=== PATIENT | male | born 1970 | race Caucasian/White ===

== ENCOUNTER → 2024-08-15 12:02 | Outpatient (BNVA) | payer SELFPAY | PROVIDERS: PCP Registered Nurse; Visit Provider Internal Medicine | DX: E11.9 Type 2 diabetes mellitus without complications (principal) | CPT/HCPCS: 36415; 80053 ==

== ENCOUNTER 2024-08-16 10:37 | Emergency (ER) | payer SELFPAY ==
--- OUTSIDE RECORDS SUMMARY | 2024-08-16 10:46 | XMS_ITS | Encounter Summary ---
Author Organization [id number] Address [address] [place] [address] Care Team Providers Care Paste Worker Name Role Phone Non-Staff, Physician Primary Care Provider Unava ilable Encounter Details Date Type Department Care Team (Late st Contact Info) Description 06/19/2016 Ancillary Orders Revolymer Prince [address] [place] [phone] Natasha Alegria, TAMEKA Javier [address] [place] [address] Left shoulder pain, unspecified chronicity Social History Tobacco Use Types Packs/Day Years Used Date Smoking Tobacco: Passive Smo ke Exposure - Never Smoker Cigarettes 1 25 Alcohol Use Standard Drinks/Week Comments Yes 0 (1 standard drink = 0.6 oz pur e alcohol) Sex and Gender Information Value Date Recorded Sex Assigned at Not on file 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 Exam: XR SHOULDER 2+ VW LEFT Date/Time of Exam: 06/19/2016 11:00 AM Reason For Exam: Left shoulder pain, unspecified chronicity. Findings: Bones and joint spaces are intact. No soft tissue pathology evident. IMPRESSION: Negative. [id number] Narrative Procedure Note Raheem Lawson MD - 06/19/2016 IMPRESSION IMPRESSION: Please see below. Exam: XR SHOULDER 2+ VW LEFT Date/Time of Exam: 06/19/2016 11:00 AM Reason For Exam: Left shoulder pain, unspecified chronicity. Findings: Bones and joint spaces are intact. No soft tissue pathology evident. IMPRESSION: Negative. [id number] Chepe Kaur Sr., [facility] G ORDERABLES Final Result documented in this encounter Visit Diagnoses Diagnosis Left shoulder pain, unspecified chronicity Left shoulder pain, unspecified chronicity documented in this encounter Care Teams Paste Worker Relationship Specialty Start Date End Date Non-Staff, Physician NO ADDRESS ON FILE PCP - General 06/19/16 documented as of this encounter
--- OUTSIDE RECORDS SUMMARY | 2024-08-16 10:46 | XMS_ITS | Clinical Summary ---
Author Organization [facility] Address [address] Attn: [place] [address] Care Team Providers Care Chemical Equipment Controller Name Role Phone Gold Holcomb MD Primary Care Provider [phone] Allergies No known active allergies Medications Symbicort 160-4.5 mcg/actuation HFA Aerosol InhalerIndication s:Mild intermittent asthma without complication inhale two puffs by mouth twice daily 10.2 Gram 11 5 Active traZODone (DESYREL) 150 mg tabletIndications :Insomnia, unspecified type Take 2 Tablets (300 mg) by mouth daily at bedtime. 60 Tablet 2 5 Active traZODone (DESYREL) 150 mg tabletIndications :Insomnia, unspecified type Take 2 Tablets (300 mg) by mouth daily at bedtime. 60 Tablet 2 5 08/07/19 25 Discontinu ed(Reorder ) Active Problems Problem Noted Date Diagnosed Date Insomnia 04/14/2022 Encounters Date Type Department Care Team Description 08/06/[address] [phone] Rosalia Ulloa FNP Insomnia, unspecified type 07/26/2024 External Device Data ST[facility] ABSTRACTION Provider, Abstract 07/26/2024 External Device Data [facility] ABSTRACTION Provider, Abstract 07/12/[address] [phone] Rosalia Ulloa, RADIOPHONE OPERATOR Insomnia, unspecified type 07/06/2024 External Device Data [facility] ABSTRACTION Provider, Abstract 07/05/2024 External Device Data ST[facility] ABSTRACTION Provider, Abstract 06/21/2024 External Device Data ST[facility] ABSTRACTION Provider, Abstract 06/14/2024 External Device Data STL ABSTRACTION Provider, Abstract 06/07/2024 5:00 PM CDT Office Visit [address] [phone] Rosalia Ulloa Herlinda, RADIOPHONE OPERATOR Insomnia, unspecified type (Primary Dx); Refused influenza vaccine; Mild intermittent asthma without complication from Last 3 Months Immunizations Immunization Administration Dates Next Due Hepatitis A Vaccine 11/07/2004 Influenza Seasonal Unspecified Formulation IM Social History Tobacco Use Types Packs/Day Years Used Date Smoking Tobacco: Never Cigarettes Passive Smoke Exposure: Yes Tobacco Cessation:Counseling Given: No Alcohol Use Standard Drinks/Week Comments Yes 0 (1 standard drink = 0.6 oz pur e alcohol) Sex and Gender Information Value Date Recorded Sex Assigned at Not on file 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 Gender Identity Not on file Sexual Orientation Straight 07/07/2024 11 :59 AM CDT Last Filed Vital Signs Vital Sign Reading Time Taken Comments Blood Pressure 138/80 06/07/2024 4:36 PM CDT Pulse 89 06/07/2024 4:36 PM CDT Temperature 36.2 C (97.2 F) 06/07/2024 4:36 PM CDT Respiratory Rate 18 06/07/2024 4:36 PM CDT Oxygen Saturation 99% 06/07/2024 4:36 PM CDT Inhaled Oxygen Concentration - - Weight 90.5 kg (199 lb 8 oz) 06/07/2024 4:36 PM CDT Height 179.1 cm (5' 10.5 ) 06/07/2024 4:36 PM CD T Body Mass Index 28.22 06/07/2024 4:36 PM CDT Plan of Treatment Upcoming Encounters Date Type Department Care Team (Late st Contact Info) Description 08/16/2024 1:00 PM CDT Office Visit [address] [phone] Coreen Wiley, TEAM PHYSICIAN [address] [place] [phone] 06/09/2025 3:00 PM CDT Office Visit [facility] [address] [place] [phone] Rosalia Ulloa, [facility] [address] [place] [address] Health Maintenance Due Date Last Done Comments Pre-Diabetes and Diabetes Screening 1970 DTAP/TDAP/TD VACCINES (1 - Tdap) 08/06/1990 HEPATITIS B VACCINES (1 of 3 - 19+ 3-dose series) 08/06/1990 COLORECTAL SCREENING 08/06/2016 Colorectal Cancer Screening 08/06/2016 FIT-DNA Q 3 years 08/06/2016 FIT/FOBT Q 1 year 08/06/2016 Flex Sig/CT Colonography Q 5 years 08/06/2016 ZOSTER VACCINE (1 of 2) 08/06/2021 INFLUENZA VACCINE (#1) 2024 , 06/07/2024, 04/14/2022, Additional history exists Care Teams Chemical Equipment Controller Relationship Specialty Start Date End Date Gold Holcomb MD [address] [phone] PCP - General Family Practice 04/21/23
--- OUTSIDE RECORDS SUMMARY | 2024-08-16 10:46 | XMS_ITS | Clinical Summary ---
Author Organization [facility] Address [facility][note 3] [facility] [place] [address] Care Team Providers Care Retail Analytics Manager Name Role Phone Non-Staff, Physician Primary Care Provider Unava ilable Allergies No known active allergies Medications albuterol (PROVENTIL,VENT SETH) 0.63 mg/3 mL Inhalation Nebu Take 0.63 mg by inhalation one time only. Active doxycycline hyclate (VIBRAMYCIN) 100 mg Oral tablet Take 1 Tab by mouth 2 times daily. 2 Tab None 2 Active doxycycline hyclate (VIBRAMYCIN) 100 mg Oral tablet Take 1 Tab by mouth 2 times daily. 20 Tab None 2 Active albuterol (PROVENTIL,VENT SETH) 90 mcg/actuation Inhalation Aero Take 2 Puffs by inhalation 4 times daily. 17 Gram 0 2 Active predniSONE (DELTASONE) 20 mg Oral tablet Take 2 Tabs by mouth 2 times daily with meals. 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 Gender Identity Not on file Sexual Orientation Not on file Occupation Industry Job Start Date Job End Date Not on file Not on file Not on file Not on file Last Filed Vital Signs Vital Sign Reading Time Taken Comments Blood Pressure 124/85 01/19/2012 6:17 PM ESTATE ATTORNEY Pulse 102 01/19/2012 8:08 PM ESTATE ATTORNEY Temperature 36.8 C (98.2 F) 01/19/2012 6:17 PM ESTATE ATTORNEY Respiratory Rate 24 01/19/2012 8:08 PM ESTATE ATTORNEY Oxygen Saturation 95% 01/19/2012 8:08 PM ESTATE ATTORNEY Inhaled Oxygen Concentration - - Weight 90.7 kg (200 lb) 01/19/2012 6:17 PM ESTATE ATTORNEY Height 180.3 cm (5' 11 ) 01/19/2012 6:17 PM ESTATE ATTORNEY Body Mass Index 27.89 01/19/2012 6:17 PM ESTATE ATTORNEY Plan of Treatment Health Maintenance Due Date Last Done Comments DTAP/TDAP/TD VACCINES (1 - Tdap) 08/06/1990 HEPATITIS B VACCINES (1 of 3 - 19+ 3-dose series) 07/18 COLORECTAL SCREENING 08/06/2016 Colorectal Cancer Screening 08/06/2016 FIT-DNA Q 3 years 08/06/2016 FIT/FOBT Q 1 year 08/06/2016 Flex Sig/CT Colonography Q 5 years 08/06/2016 ZOSTER VACCINE (1 of 2) 08/06/2021 INFLUENZA VACCINE (#1) 2023 Care Teams Retail Analytics Manager Relationship Specialty Start Date End Date Non-Staff, Physician NO ADDRESS ON FILE PCP - General 06/19/16
--- OUTSIDE RECORDS SUMMARY | 2024-08-16 10:46 | XMS_ITS | Encounter Summary ---
Author Organization [facility] Address [address] [place] [address] Care Team Providers Care Audit Consultant Name Role Phone Non-Staff, Physician Primary Care Provider Unava ilable Encounter Details Date Type Department Care Team (Latest Contact Info) Description 02/11/2002 Outpatient Historical [facility] Medicine [address], [place] [phone] Nahun Mullins MD [address] [place] [phone] POSTABLAT TESTIC HYPOFUN (Primary Dx); NEUROTIC DEPRESSION Social History Tobacco Use Types Packs/Day Years Used Date Smoking Tobacco: Never Assessed Sex and Gender Information Value Date Recorded Sex Assigned at Not on file Legal Sex Male 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
[2024-08-16 10:50] VITALS: BP 115/80; PULSE 70; RESP 16; TEMP 36.4; O2SAT 97
--- NOTE | 2024-08-16 11:19 | ED_ITS ---
HPI - General Adult 2 General: Chief complaint: General Medical Stated complaint: endo sent, abnormal labs Time Seen by Provider: 08/16/24 11:13 Source: patient Mode of arrival: ambulatory Limitations: no limitations History of Present Illness: 54-year-old male has a history of chroni c alcoholism. States he drinks 1/5 a day he recently got out of detox states he did drink yesterday he was sent here by endocrinology for elevated liver enzymes. He denies any abdominal pain currently has had no vomiting or diarrhea. Associated symptoms: Deny chest pain, dyspnea, headache(s), nausea, rash or vomiting Related Data Home Medications ?Medication ?Instructions ?Recorded ?Confirmed chlordiazepoxide HCl 25 mg capsule 25 mg PO Q4-5H PRN Alcohol 08/15/24 08/15/24 Withdrawal Previous Rx's ?Medication ?Instructions ?Recorded hydroxyzine HCl 50 mg tablet 50 mg PO .at bedtime 30 d ays #30 04/09/22 tabs budesonide-formoterol HFA 160 See Rx Instructions .Rou te 01/26/23 mcg-4.5 mcg/actuation aerosol .COMPLEX #10.2 grams inhaler (Symbicort) insulin glargine 100 unit/mL (3 10 unit (0.1 mL) SUBCU T QAM #3 mL 08/16/24 mL) subcutaneous pen (Lantus Solostar U-100 Insulin) ondansetron 4 mg disintegrating 4 mg PO Q6H PRN nausea and 08/16/24 tablet vomiting #14 tabs Allergies Allergy/AdvReac Type Severity Reaction Status Date / Time No Known Allergies Allergy Verified 04/09/22 09:23 Review of Systems 2 Const: Denies: fever(s), chills, body aches or change in appetite ENMT: Denies: throat pain or dental pain Card: Denies: chest pain Resp: Denies: dyspnea GI: Denies: abdominal pain, nausea, vomiting or diarrhea Musc: Denies: neck pain or back pain Skin/Breast: Denies: rash Neuro: Denies: headache(s) PFSH ED 2 PFSH: Medical History DM type 2 (diabetes mellitus, type 2) Alcohol ingestion of more than two drinks per day Asthma Social History Smoking and tobacco/nicotine status: former use of tobacco/nicotine Alcohol intake: current Substance/Drug Use: never Adopted: No Caregiver/support person: No service: No Current occupational status: employed Sexually active: Yes Do you think of yourself as: Straight/Heterosexual Current gender identity: Male Physical Exam 2 Const: COMMON NORMALS: no acute distress, patient oriented x3 and healthy appearing HENMT: COMMON NORMALS: normocephalic and atraumatic HEAD & SCALP: n ormocephalic and atraumatic Eye: COMMON NORMALS: conjunctivae normal CONJUNCTIVA: Yes conjunctivae normal Neck/C-Spine: COMMON NORMALS: full ROM and supple Chest: COMMONS NORMALS: normal inspection of the chest Resp: COMMON NORMALS: normal respiratory effort, No retractions, No use of accessory muscles and clear to auscultation bilaterally AUSCULTATION: clear to auscultation bilaterally Cardio: COMMON NORMALS: regular rate, regular rhythm and No murmurs present (Cardio) RATE: regular rate RHYTHM: regular rhythm GI: COMMON NORMALS: Normal to inspection, nondistended, normoactive bowel sounds present, Soft to palpation, non-tender and no masses PALPATION: Yes Soft to palpation Extremity: COMMON NORMALS: normal to inspection and full ROM Neuro: COMMON NORMALS: patient oriented x3, moves all extremities and no focal motor deficits Psych: COMMON NORMALS: mental status grossly normal, Normal thought process present and cooperative THOUGHT PROCESS: Normal thought process present Skin: COMMON NORMALS: no rashes or lesions noted and no wounds GENERAL SKIN EXAM: no rashes or lesions noted Course 2 Vital Signs: Vital signs: Vital Signs Temperature 97.5 F L 08/16/24 10:50 Pulse Rate 66 08/16/24 11:34 Respiratory Rate 18 08/16/24 11:34 Blood Pressure 122/74 08/16/24 11:34 Pulse Oximetry 96 08/16/24 11:34 Oxygen Delivery Me thod Room Air 08/16/24 10:50 [facility] - General Adult Medical Decision Making Patient presents here with elevated liver enzymes likely due to his alcohol abuse his liver enzymes have improved from previous no signs of liver failure. Offered admission for detox he states that he has been going through detox treatments and does not want to be admitted did give him a dose of thiamine will prescribe Zofran he stable for discharge follow-up PCP return if worsening. Medical Records I reviewed the patient's medical records. Lab Data I reviewed the patient's lab results. 08/16/24 11:28 08/16/24 11:28 Laboratory Results WBC 5.04 10^3/uL (3.29-11.43) 08/16/24 11:28 RBC 4.62 10^6/uL (3.85-5.65) 08/16/24 11:28 Hgb 14.40 g/dL (11.27-16.99) 08/16/24 11:28 Hct 41.3 % (37-53) 08/16/24 11:28 MCV 89.4 fl (82-101) 08/16/24 11:28 MCH 31.2 pg (27-33) 08/16/24 11:28 MCHC 34.9 g/dL (30-55) 08/16/24 11:28 RDW 12.3 % (12.1-15.1) 08/16/24 11:28 Plt Count 133 10^3/cmm (157-399) L 08/16/24 11:28 MPV 10.3 fL (7.4-10.4) 08/16/24 11:28 Neut % (Auto) 63.0 % 08/16/24 11:28 Lymph % (Auto) 17.9 % 08/16/24 11:28 [place] % (Auto) 13.1 % 08/16/24 11:28 Eos % (Auto) 5.2 % 08/16/24 11:28 Baso % (Auto) 0.6 % 08/16/24 11:28 Neut # (Auto) 3.18 10^3/uL (1.8-7.7) 08/16/24 11:28 Lymph # (Auto) 0.9 10^3/uL (0.8-4.8) 08/16/24 11:28 [place] # (Auto) 0.7 10^3/uL (0.2-0.9) 08/16/24 11:28 Eos # (Auto) 0.3 10^3/uL (0.0-0.8) 08/16/24 11:28 Baso # (Auto) 0.0 10^3/uL (0.0-0.1) 08/16/24 11:28 Nucleated RBC % (auto) 0 % 08/16/24 11:28 Nucleated RBCs # 0.0 /100WBC 08/16/24 11:28 PT 14.20 SECONDS (12.1-14.9) 08/16/24 11:28 INR 1.03 (0.8-1.2) 08/16/24 11:28 Sodium 135 mmol/L (136-145) L 08/16/24 11:28 Potassium 4.1 mmol/L (3.5-5.1) 08/16/24 11:28 Chloride 99 mmol/L (98-107) 08/16/24 11:28 Carbon Dioxide 23 mmol/L (22-29) 08/16/24 11:28 Anion Gap 17.1 (5-19) 08/16/24 11:28 BUN 13 mg/dL (6-20) 08/16/24 11:28 Creatinine 0.6 mg/dL (0.7-1.2) L 08/16/24 11:28 GFR Calculation 140.9 mL/min (90-130) H 08/16/24 11:28 Glucose 236 mg/dL (65-115) H 08/16/24 11:28 Calculated Osmolality 288 mOsm/kg (285-295) 08/16/24 11:28 Calcium 9.5 mg/dL (8.5-10.5) 08/16/24 11:28 Total Bilirubin 0.5 mg/dL (0.15-1.2) 08/16/24 11:28 AST 313 U/L (0-40) H 08/16/24 11:28 ALT 309 U/L (0-41) H 08/16/24 11:28 Alkaline Phosphatase 98 U/L (40-130) 08/16/24 11:28 Total Protein 7.4 g/dL (6.6-8.7) 08/16/24 11:28 Albumin 4.2 g/dL (3.5-5.2) 08/16/24 11:28 Globulin 3.2 g/dL (1.3-4.6) 08/16/24 11:28 Ethyl Alcohol < 10 mg/dL (0-10) 08/16/24 11:28 All radiology interpretation(s) finalized by discharge EKG Data EKG 1: I personally reviewed and interpreted this EKG as follows: EKG interpretation date: 08/16/24 EKG interpretation time: 11:16 Interpretation: nsr hr [address] elevation qrs 91 qtc 427 Discharge Plan Discharge Patient Disposition: Home Clinical Impression: Elevated liver enzymes Condition: Stable Prescriptions: New ondansetron 4 mg tablet,disintegrating 4 mg PO Q6H PRN (Reason: nausea and vomiting) Qty: 14 0RF No Action hydroxyzine HCl 50 mg tablet 50 mg PO .at bedtime 30 Days Qty: 30 0RF budesonide-formoterol [Symbicort] 160-4.5 mcg/actuation HFA aerosol inhaler See Rx Instructions .ROUTE .COMPLEX Qty: 10.2 0RF Dose Instruction: INHALE TWO PUFFS BY MOUTH TWICE DAILY Rx Instructions: INHALE TWO PUFFS BY MOUTH TWICE DAILY insulin glargine [Lantus Solostar U-100 Insulin] 100 unit/mL (3 mL) insulin pen 10 unit SUBCUT QAM Qty: 3 3RF chlordiazepoxide HCl [Librium] 25 mg Capsule 25 mg PO Q4-5H MDD 12 PRN (Reason: Alcohol Withdrawal) Rx Instructions: Take 1-2 capsules Q4 hours PRN Discharge Orders: Discharge ED (Routine); Ordered 08/16/24 Ordered By: Michelle Liu Referrals: Rosalia Ulloa [Primary Care Provider, Family Practice] - 4-7 days Discharge Diet: Advance as tolerated Discharge Activity: Resume usual activity Patient Instructions: Transaminitis (ED) Print Language: Solomon Islander Coding Level of Care Code ED General Purchasing Agent for Camila Duggan
[2024-08-16 11:34] VITALS: BP 122/74; PULSE 66; RESP 18; O2SAT 96
[2024-08-16 11:36] LABS: Hematocrit 41.3 % (37-53); Hemoglobin 14.40 g/dL (11.27-16.99); Mean Corpuscular HGB Conc 34.9 g/dL (30-55); Mean Corpuscular Hemoglobin 31.2 pg (27-33); Mean Corpuscular Volume 89.4 fl (82-101); Nucleated Red Blood Cells % 0 %; Platelet Count 133 10^3/cmm (157-399); Red Blood Count 4.62 10^6/uL (3.85-5.65); White Blood Count 5.04 10^3/uL (3.29-11.43)
[2024-08-16 11:49] LABS: INR 1.03 (0.8-1.2); Prothrombin Time 14.20 SECONDS (12.1-14.9)
[2024-08-16] MEDS: ondansetron 2 mg/ML SDV 2 mL 4 MG IVP (11:54)
[2024-08-16 11:59] LABS: Alanine Aminotransferase 309 U/L (0-41); Albumin Level 4.2 g/dL (3.5-5.2); Alkaline Phosphatase 98 U/L (40-130); Anion Gap 17.1 (5-19); Aspartate Amino Transferase 313 U/L (0-40); Blood Urea Nitrogen 13 mg/dL (6-20); Calcium 9.5 mg/dL (8.5-10.5); Carbon Dioxide 23 mmol/L (22-29); Chloride 99 mmol/L (98-107); Creatinine Clr Calc Pharmacy 160.4127; Globulin 3.2 g/dL (1.3-4.6); Glucose 236 mg/dL (65-115); Osmolality Calculated 288 mOsm/kg (285-295); Potassium 4.1 mmol/L (3.5-5.1); Sodium 135 mmol/L (136-145); Total Protein 7.4 g/dL (6.6-8.7)
[2024-08-16 12:01] LABS: Alcohol Level < 10 mg/dL (0-10)
[2024-08-16] MEDS: thiamine 100 mg/mL 2mL SDV IVP (12:22)
[2024-08-16 12:27] LABS: Hepatitis A Antibody IgM Non-Reactive (Nonreactive); Hepatitis B Surface Antigen Non-Reactive (Nonreactive)
[2024-08-16 12:47] VITALS: BP 111/67; PULSE 61; RESP 16; O2SAT 97
--- NOTE | 2024-08-16 16:28 | ECG_ITS ---
[facility] Test Date: 2024-08-16 Pat Name: Sage Celis Department: Room: Gender: Male Computer Network Support Specialist: : 1970 Requested By: Michelle Liu Order Number: [id number] Arredondo MD: Alejandro Montiel M.D. Measurements Intervals Logan Rate: 67 P: 31 WI: 174 QRS: 9 QRSD: 91 T: 47 QT: 412 QTc: 435 Interpretive Statements SINUS RHYTHM No previous ECG available for comparison Electronically Signed On 08-18-2024 09:33:04 CDT by Alejandro Montiel M.D. [id number]
--- NOTE | 2024-08-18 14:31 | W.CSC.NURCN ---
[facility] Nurse Contact Note Nurse Contact Note Client called the [facility] to speak with the nurse. Client reported increased depression and anxiety. Client denied SI/HI. Client reports that he has been having a hard day and doesn't want to drink, he stated his librium makes him nauseated. Nurse contacted Dr. Hua, gave a brief report, and received verbal orders for Prozac 20 mg PO once daily Qty 30, 0RF and Zofran 4mg PO Q6H PRN for nausea Qty 28, 0RF. Nurse called medications in to [facility] pharmacy per client request. Nurse updated the client over the phone and reminded the client of the [facility] services that are available.
== END 2024-08-16 12:51 | disposition home or self-care (01) ==
PROVIDERS: Emergency Provider Emergency Medicine; PCP Registered Nurse
DX: R74.01 Elevation of levels of liver transaminase levels (principal); Z79.4 Long term (current) use of insulin; Z87.891 Personal history of nicotine dependence; E11.9 Type 2 diabetes mellitus without complications
CPT/HCPCS: 80053; 80307; 85025; 85610; 86705; 86706; 86709; 86803; 87340; 93005; 96374; 96375; 99284; J2405; J3411; J7030

== ENCOUNTER → 2024-10-31 13:04 | Outpatient (BNVA) | payer MEDICAID, SELFPAY | PROVIDERS: PCP Registered Nurse; Referring Provider Registered Nurse; Visit Provider Internal Medicine Cardiovascular Disease | DX: R00.1 Bradycardia, unspecified (principal) | CPT/HCPCS: 93005 ==